=== PATIENT | female | born 1970 | race Caucasian/White ===

== ENCOUNTER 2021-10-11 16:13 | Emergency (ER) | payer SELFPAY ==
[2021-10-11 16:43] VITALS: BP 154/103; PULSE 89; RESP 16; TEMP 37.2; O2SAT 96; BMI 47.0
[2021-10-11 16:44] LABS: UTC Strep Screen (Rapid) Negative (Negative)
--- NOTE | 2021-10-11 17:09 | HMH.EDUTC ---
[facility] Disposition Clinical Impression: COVID-19 Disposition: Home, Self-Care Condition on Discharge: Good Instructions: DI for COVID-19 (Suspected or Confirmed ), Preventing the Spread of Coronavirus Discharge Instructions Additional Instructions: Drink plenty of fluids. Take tylenol or ibuprofen for pain or fever. Take the medications as directed. Follow up with your regular doctor. GO TO THE ER FOR ANY WORSENING SYMPTOMS The cough medication (promethazine dm) will make you drowsy, so don't drive or operate heavy machinery after taking it. Prescriptions: Albuterol Sulfate [Albuterol Sulfate Hfa] 2 puffs IH Q6HP PRN 30 Days #1 each PRN Reason: Shortness Of Breath Transmission Status: Received by [facility] # Fluconazole [Diflucan 150mg tab] 150 mg PO ONCE #1 tab Transmission Status: Received by [facility] # methylPREDNISolone [Medrol] 4 mg PO DIRECTED 6 Days #21 packet Transmission Status: Received by [facility] # Nirmatrelvir/Ritonavir [Paxlovid 2X150 mg-100 mg (Eua)] 1 packet PO DIRECTED 5 Days #1 packet Transmission Status: Received by [facility] # Azithromycin [Z-Thien 250mg Tab*] 250 mg PO UD DOSE PK #6 tab Transmission Status: Received by [facility] # Referrals: Provider,Referral, [Primary Care Provider] - Forms: Work/School Release Time of Disposition: 17:13 Medical Decision Making - Medical Records Medical records reviewed: No: I reviewed the patient's medical records. - Nicola Inquiry Pt receiving controlled substance: No Vital Signs: 10/11/21 16:43 10/11/21 17:21 Temperature 98.9 F 98.9 F Temperature Source Oral Pulse Rate 89 Pulse Rate [Left] 89 Respiratory Rate 16 16 Blood Pressure 154/103 H Blood Pressure [Right Arm] 154/103 H Blood Pressure Mean [Right Arm] 120 02 Sat by Pulse Oximetry 96 - Lab Data Lab results reviewed: Yes: I reviewed the patient's lab results. Lab Results 10/11/21 16:43: Strep Scn Rapid Clinic Negative Orders (Tests/Meds): ORDERS Category Date Time Status Strep Screen Confirmation Stat Micro 10/11/21 16:43 Received [facility] HPI - General Stated complaint: covid test, exposed,sore throat, alejandra Time Seen by Provider: 10/11/21 17:00 Mode of Arrival: Ambulatory Source of Information: Patient Limitations: No Limitations Description of Symptoms (Recalled from Triage Doc. by RN): patient comes in with complaints of covid symptoms. patient took an at home covid test this am and it was positive. symptoms began monday and include sore throat, congesetion, cough, headache, body aches. HEENT Symptoms (Recalled from RN notes): Yes Resp Symptoms (Recalled from RN notes): Yes Skin Symptoms (Recalled from RN notes): No MS Symptoms (Recalled from RN notes): No Functional Status (Recalled from RN notes): n/a - History of Present Illness Provider Complaint: She states that she has felt bad for the past 2 days. She took a home covid-19 test last night and it was positive. 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 - Related Data Previous Rx's Medication Instructions Recorded Albuterol Sulfate [Albuterol 2 puffs IH Q6HP PRN 30 Days #1 each 10/11/21 Sulfate Hfa] Azithromycin [Z-Thien 250mg Tab*] 250 mg PO UD DOSE PK #6 tab 10/11/21 Fluconazole [Diflucan 150mg tab] 150 mg PO ONCE #1 tab 10/11/21 Nirmatrelvir/Ritonavir [Paxlovid 1 packet PO DIRECTED 5 Days #1 10/11/21 2X150 mg-100 mg (Eua)] packet methylPREDNISolone [Medrol] 4 mg PO DIRECTED 6 Days #21 10/11/21 packet Allergies Allergy/AdvReac Type Severity Reaction Status Date / Time No Known Allergies Allergy Verified 10/11/21 16:46 - Worker's Comp Is this a Worker's Comp case?: No [facility] History - Hepatitis A Screen Attestation statement:: This patient has been screened for Hepatitis A risk factors. I have reviewed the patient's
[2021-10-11 17:21] VITALS: BP 154/103; PULSE 89; RESP 16; TEMP 37.2
== END 2021-10-11 17:22 | disposition home or self-care (01) ==
PROVIDERS: Emergency Provider Nurse Practitioner Family
DX: U07.1 COVID-19 (principal); J02.9 Acute pharyngitis, unspecified; M79.10 Myalgia, unspecified site; R51.9 Headache, unspecified; Z79.51 Long term (current) use of inhaled steroids; Z79.52 Long term (current) use of systemic steroids
CPT/HCPCS: 87880; 99213; C9803; G0463; U0003; U0005

== ENCOUNTER 2022-01-21 03:56 | Emergency (ER) | payer MEDICAID, SELFPAY ==
[2022-01-21 03:58] VITALS: BP 220/130; PULSE 79; RESP 18; TEMP 36.6; O2SAT 99; BMI 47.0
--- NOTE | 2022-01-21 04:04 | ECG_ITS ---
APPROVED REPORT Exam: Resting ECG HR:69 bpm ECG Measurements Heart Rate 69 AXES SC 166 P 73 QRSd 104 QRS 0 QT 418 T 105 QTc 436 Conclusion SINUS RHYTHM MODERATE T-WAVE ABNORMALITY, CONSIDER LATERAL ISCHEMIA [-0.1+ mV T-WAVE IN I/aVL/V5/V6] ABNORMAL ECG UNCONFIRMED REPORT Electronically signed by : Tomer Adames MD 01/22/2022 21:17:36
--- NOTE | 2022-01-21 04:09 | XR_ITS ---
PROCEDURE INFORMATION: Exam: XR Chest Exam date and time: 01/21/2022 4:09 AM Age: 51 years old Clinical indication: Cardiovascular condition or disease; Other: HTN TECHNIQUE: Imaging protocol: Radiologic exam of the chest. Views: 2 views. COMPARISON: No relevant prior studies available. FINDINGS: Lungs: No pulmonary infiltrate, pneumothorax or pleural effusion. Pleural spaces: See Lungs finding. Heart/Mediastinum: No cardiomegaly. Bones/joints: The visualized bones appear intact. Intraperitoneal space: No free air under the diaphragm. IMPRESSION: No acute cardiopulmonary process.
--- NOTE | 2022-01-21 04:19 | PC.NURSE ---
PT gone to RAD
--- NOTE | 2022-01-21 04:21 | PC.NURSE ---
Pt back from RAD
--- NOTE | 2022-01-21 04:26 | HMH.EDDIZZ ---
Discharge Plan Disposition Chief Complaint: Dizziness Referrals Follow up/Referrals: Provider,MD Shannan [Primary Care Provider] - See instructions Madi Zamora MD [Staff Physician] - See instructions Clinical Impressions Clinical Impression: Hypertensive emergency Instructions Patient Instructions: DI for High Blood Pressure, Dizziness, Nonvertigo Discharge ED Provider: Edgardo Lopez HPI General Chief Complaint: Dizziness Stated Complaint: High blood pressure-217/119,dizziness Time Seen by Provider: 01/21/22 04:26 Mode of Arrival: Ambulatory Source of Information: Patient and Medical Record Limitations: No Limitations Description of Symptoms (Recalled from ER Triage Doc. by RN): pt c/o HTN, dizzy, light headed, and episodes of blurred vision since monday. pt had been on HTN meds but moved and ran out and haven't found new pcp History of Present Illness HPI Narrative: has hx of htn and out of meds and not feeling well w/o chest pain or focal neuro sx complaint: dizziness Onset (ago): hour(s) Timing: waxing/waning History of similar episodes: Yes History of trauma: No Severity: moderate Associated symptoms: denies other symptoms Related Data Allergies Allergy/AdvReac Type Severity Reaction Status Date / Time No Known Allergies Allergy Verified 10/11/21 16:46 PFSH PFSH Social History Smoking Status: Never smoker alcohol intake: never current occupational status: employed Travel in the last 8 weeks: None ROS Obtained: Yes All systems reviewed & no additional complaints except as documented Physical Exam General General appearance: alert and obese Head Head exam: normocephalic Eye Eye exam: Present PERRL and EOMI; Absent nystagmus ENT ENT exam: Present normal oropharynx and mucous membranes moist Neck Neck exam: Present trachea midline Respiratory Respiratory exam: Present normal lung sounds bilaterally Cardiovascular Cardiovascular exam: Present regular rate and systolic murmur Abdominal Exam Abdominal exam: Present soft Extremities Exam Extremities exam: Present full ROM; Absent edema Neurological Exam Neurological exam: Present alert, oriented X3 and CN II-XII intact Psychiatric Psychiatric exam: Present normal affect Skin Skin exam: Absent rash Medical Decision Making Medical Records Medical records reviewed: Yes I reviewed the patient's medical records. Nicola Inquiry Pt receiving controlled substance: No Vital Signs: 01/21/22 03:58 01/21/22 05:26 Temperature 97.8 F Temperature Source Oral Pulse Rate 62 Pulse Rate [Right] 79 Respiratory Rate 18 Blood Pressure 188/93 H Blood Pressure [Right Arm] 220/130 H Blood Pressure Mean [Right Arm] 160 Blood Pressure Source [Right Arm] Manual Cuff/ Auscultation 02 Sat by Pulse Oximetry 99 95 Oxygen Delivery Method Room Air Lab Data Lab results reviewed: Yes I reviewed the patient's lab results. Lab Results 01/21/22 04:15: WBC 7.8, RBC 5.33, Hgb 14.8, Hct 45.6, MCV 85.6, MCH 27.8, MCHC 32.4, RDW 14.9, Plt Count 263, MPV 8.7, Neut % (Auto) 53.0, Lymph % (Auto) 39.8, [place] % (Auto) 4.5, Eos % (Auto) 1.6, Baso % (Auto) 1.1, Neut # (Auto) 4.1, Lymph # (Auto) 3.1, [place] # (Auto) 0.4, Eos # (Auto) 0.1, Baso # (Auto) 0.1 01/21/22 04:15: Sodium 140, Potassium 3.5, Chloride 102, Carbon Dioxide 26, Anion Gap 15.5 H, BUN 14, Creatinine 0.90, Estimated Creat Clear 71, Estimated GFR 66, Est GFR ( Amer) 80, Glucose 134 H, Calcium 9.2, Total Bilirubin 0.3, AST 26, ALT 23, Alkaline Phosphatase 178 H, Troponin I < 0.01, Total Protein 7.7, Albumin 4.2, Globulin 3.5 H, Albumin/Globulin Ratio 1.2 Result diagrams: 01/21/22 04:15 01/21/22 04:15 Orders (Tests/Meds): ED MEDICATIONS Discontinued Medications Generic Name Dose Route Start Last Admin Trade Name Freq PRN Reason Stop Dose Admin Clonidine HCl 0.1 mg 01/21/22 04:47 01/21/22 04:49 Clonidine 0.1mg Tablet
[2022-01-21 04:36] LABS: Basophils # 0.1 K/mm3 (0-0.2); Basophils % 1.1 % (0.1-2.0); Eosinophils # 0.1 K/mm3 (0.0-0.4); Eosinophils % 1.6 % (0.1-12.0); Hematocrit 45.6 % (37.0-47.0); Hemoglobin 14.8 g/dL (12.2-16.2); Lymphocytes # 3.1 K/mm3 (0.7-4.5); Lymphocytes % 39.8 % (10-50); Mean Corpuscular HGB Conc 32.4 g/dL (31.8-35.4); Mean Corpuscular Hemoglobin 27.8 pg (27.0-31.2); Mean Corpuscular Volume 85.6 fl (81-99); Mean Platelet Volume 8.7 fl (7.4-10.4); Monocytes # 0.4 K/mm3 (0.1-1.0); Monocytes % 4.5 % (1.7-9.3); Neutrophils # 4.1 K/mm3 (1.8-7.8); Platelet Count 263 K/mm3 (142-424); Red Blood Count 5.33 M/mm3 (4.20-5.40); Red Cell Distribution Width 14.9 % (11.5-17.5); White Blood Count 7.8 K/mm3 (4.8-10.8)
--- NOTE | 2022-01-21 04:47 | CT_ITS ---
PROCEDURE INFORMATION: Exam: CT Head Without Contrast Exam date and time: 01/21/2022 4:54 AM Age: 51 years old Clinical indication: Dizziness; Additional info: Dizziness, high blood pressure TECHNIQUE: Imaging protocol: Computed tomography of the head without contrast. Radiation optimization: All CT scans at this facility use at least one of these dose optimization techniques: automated exposure control; mA and/or kV adjustment per patient size (includes targeted exams where dose is matched to clinical indication); or iterative reconstruction. COMPARISON: No relevant prior studies available. FINDINGS: Brain: No evidence of acute intracranial hemorrhage. No acute parenchymal edema. No mass or shift. Cerebral ventricles: No ventriculomegaly. Paranasal sinuses: Visualized sinuses are unremarkable. No fluid levels. Mastoid air cells: Unremarkable as visualized. No mastoid effusion. Bones/joints: No acute fracture. Soft tissues: Unremarkable. IMPRESSION: No acute intracranial process.
[2022-01-21 04:50] LABS: Chloride 102 mmol/L (98-107); Potassium 3.5 mmoL/L (3.5-5.1); Sodium 140 mmol/L (136-145)
[2022-01-21 04:52] LABS: Alanine Aminotransferase 23 U/L (12-78); Alkaline Phosphatase 178 U/L (38-126); Aspartate Amino Transferase 26 U/L (14-36); Bilirubin,Total 0.3 mg/dl (0.2-1.3); Blood Urea Nitrogen 14 mg/dl (7-17); Creatinine Clearance Estimated 71 mL/min (50-200); Estimated Glomerular Filt Rate 66 ml/min (>60); GFR (African American) 80 ML/MIN (>60)
[2022-01-21 04:53] LABS: Albumin Level 4.2 g/dl (3.5-5.0); Albumin/Globulin Ratio 1.2 (1.1-1.8); Anion Gap 15.5 mEq/L (5-15); Calcium 9.2 mg/dl (8.4-10.2); Carbon Dioxide 26 mmol/L (22.0-30.0); Globulin 3.5 g/dL (1.3-3.2); Glucose 134 mg/dl (74-100); Total Protein,Serum 7.7 g/dl (6.3-8.2)
--- NOTE | 2022-01-21 04:53 | PC.NURSE ---
Pt gone to RAD for CT
[2022-01-21 05:26] VITALS: BP 188/93; PULSE 62; O2SAT 95
[2022-01-21 05:27] LABS: Troponin I < 0.01 ng/ml (0.00-0.034)
[2022-01-21 06:24] VITALS: BP 179/97; PULSE 61; RESP 16; TEMP 36.8; O2SAT 94
== END 2022-01-21 06:51 | disposition home or self-care (01) ==
PROVIDERS: Emergency Provider Emergency Medicine
DX: I16.1 Hypertensive emergency (principal)
CPT/HCPCS: 70450; 71046; 80053; 84484; 85025; 93005; 99285

== ENCOUNTER → 2022-02-09 14:55 | Outpatient (CLI) | payer MEDICAID, SELFPAY ==
[2022-02-09 15:47] LABS: Basophils # 0.1 K/mm3 (0-0.2); Basophils % 1.5 % (0.1-2.0); Eosinophils # 0.2 K/mm3 (0.0-0.4); Eosinophils % 1.8 % (0.1-12.0); Hematocrit 45.2 % (37.0-47.0); Hemoglobin 14.7 g/dL (12.2-16.2); Lymphocytes # 3.2 K/mm3 (0.7-4.5); Lymphocytes % 38.9 % (10-50); Mean Corpuscular HGB Conc 32.6 g/dL (31.8-35.4); Mean Corpuscular Hemoglobin 27.4 pg (27.0-31.2); Mean Platelet Volume 8.9 fl (7.4-10.4); Monocytes # 0.4 K/mm3 (0.1-1.0); Monocytes % 5.2 % (1.7-9.3); Neutrophils # 4.3 K/mm3 (1.8-7.8); Neutrophils % 52.6 % (37.0-80.0); Platelet Count 291 K/mm3 (142-424); Red Blood Count 5.38 M/mm3 (4.20-5.40); Red Cell Distribution Width 14.5 % (11.5-17.5); White Blood Count 8.3 K/mm3 (4.8-10.8)
[2022-02-09 16:42] LABS: Anion Gap 16.3 mEq/L (5-15); Blood Urea Nitrogen 25 mg/dl (7-17); Calcium 10.4 mg/dl (8.4-10.2); Carbon Dioxide 27 mmol/L (22.0-30.0); Chloride 100 mmol/L (98-107); Estimated Glomerular Filt Rate 47 ml/min (>60); GFR (African American) 57 ML/MIN (>60); Glucose 143 mg/dl (74-100); Potassium 4.3 mmoL/L (3.5-5.1); Sodium 139 mmol/L (136-145)
[2022-02-09 17:00] LABS: Free Thyroxine Index 2.4 ug/dL (5.93-13.13); Triiodothryronine (T3) Uptake 34 % (23.5-40.5)
[2022-02-09 17:13] LABS: Thyroid Stimulating Hormone 0.05 uIU/mL (0.465-4.68)
== END ==
PROVIDERS: Visit Provider Physician Assistant
DX: I16.1 Hypertensive emergency (principal); R94.31 Abnormal electrocardiogram [ECG] [EKG]; Z79.899 Other long term (current) drug therapy
CPT/HCPCS: 36415; 80048; 84436; 84443; 84479; 85025

== ENCOUNTER → 2022-03-07 13:54 | Outpatient (CLI) | payer MEDICAID, SELFPAY ==
--- NOTE | 2022-03-07 13:57 | US_ITS ---
FINAL REPORT CLINICAL HISTORY: hyperthyroidism FINDINGS: THYROID ULTRASOUND Scattered thyroid nodules. Dominant mass in the posterior left thyroid lobe has a predominantly isoechoic appearance measuring up to 2.2 cm. Other lesions are subcentimeter measuring up to 9 mm having a benign appearance. Mild thyromegaly with heterogeneous parenchyma compatible with goiter. IMPRESSION: Dominant mass in the left thyroid lobe with underlying multinodular goiter compatible with TI-RADS 3. Recommend FNA of the dominant mass. Reviewed, Interpreted and Dictated by Ayush Henderson MD Transcribed by Royer Everett Authenticated and [facility]
== END ==
PROVIDERS: PCP Nurse Practitioner Family; Visit Provider Physician Assistant
DX: E05.90 Thyrotoxicosis, unspecified without thyrotoxic crisis or storm (principal); I10 Essential (primary) hypertension; R07.9 Chest pain, unspecified; R94.31 Abnormal electrocardiogram [ECG] [EKG]
CPT/HCPCS: 76536

== ENCOUNTER → 2022-03-29 15:00 | Outpatient (CLI) | payer MEDICAID, SELFPAY ==
[2022-03-29 17:00] LABS: Anion Gap 12.9 mEq/L (5-15); Blood Urea Nitrogen 12 mg/dl (7-17); Calcium 9.2 mg/dl (8.4-10.2); Carbon Dioxide 27 mmol/L (22.0-30.0); Chloride 103 mmol/L (98-107); Estimated Glomerular Filt Rate 52 ml/min (>60); GFR (African American) 63 ML/MIN (>60); Glucose 103 mg/dl (74-100); Potassium 3.9 mmoL/L (3.5-5.1); Sodium 139 mmol/L (136-145)
[2022-03-29 17:14] LABS: Free T4 (Free Thyroxine) 1.06 ng/dl (0.78-2.19)
[2022-03-29 17:15] LABS: Intact Parathyroid Hormone 102.2 pg/mL (7.5-53.5)
[2022-03-31 08:45] LABS: Triiodothyronine (T3) Free 2.6 pg/mL (2.0-4.4)
[2022-03-31 18:09] LABS: Calcium, Ionized 5.3 mg/dL (4.5-5.6)
[2022-04-01 07:32] LABS: Thyroid Stimulating Immunoglob <0.10 IU/L (0.00-0.55)
== END ==
PROVIDERS: PCP Emergency Medicine; Visit Provider Student in an Organized Health Care Education/Training Program
DX: E05.90 Thyrotoxicosis, unspecified without thyrotoxic crisis or storm (principal)
CPT/HCPCS: 36415; 80048; 82330; 83970; 84439; 84443; 84445; 84481

== ENCOUNTER → 2022-04-08 07:57 | Outpatient (CLI) | payer MEDICAID, SELFPAY ==
--- NOTE | 2022-04-08 07:57 | US_ITS ---
FINAL REPORT CLINICAL HISTORY: .lt thyroid fna -- eddie silvestre FINDINGS: Ultrasound guided thyroid biopsy. HISTORY:. Left thyroid nodule. Attending radiologist: Dr. Nicholas Physician Grape Cutter: Eddie Lr PA-C PROCEDURE: After informed consent was obtained and a time-out was performed, the patient was prepped and draped in usual sterile fashion over the left neck. Utilizing local anesthesia and sterile technique with a 25-gauge needle, access to lesion was obtained. 6 passes were made. The pathologist indicated the specimens were adequate for diagnostic purposes. The patient received no conscious sedation. The patient tolerated procedure well and left the department in good condition. IMPRESSION: Status post ultrasound guided biopsy of thyroid without immediate complication. Films reviewed , interpreted and dictated by Dr. Nicholas. Transcribed by Eddie Lr PA-C. Reviewed, Interpreted and Dictated by Marino Nicholas III, MD Transcribed by RADHA Escalera Authenticated and [facility]
== END ==
PROVIDERS: PCP Emergency Medicine; Visit Provider Student in an Organized Health Care Education/Training Program
DX: E05.90 Thyrotoxicosis, unspecified without thyrotoxic crisis or storm (principal)
CPT/HCPCS: 10005; 76536

== ENCOUNTER → 2022-08-16 13:29 | Outpatient (CLI) | payer MEDICAID, SELFPAY ==
--- NOTE | 2022-08-16 13:29 | MM_ITS ---
PROCEDURE INFORMATION: Exam: MG Bilateral Screening 3D Mammography Exam date and time: 08/16/2022 1:32 PM Age: 51 years old Clinical indication: Screening. Maternal and paternal aunts had breast cancer. TECHNIQUE: Imaging protocol: Bilateral Screening tomosynthesis and 2D mammography including computer-aided detection (CAD) when performed. COMPARISON: No relevant prior studies available. If prior mammograms are provided, I am happy to add an addendum. FINDINGS: MAMMOGRAPHY: Breast composition: The breasts are almost entirely fatty. Mass: None. Architectural distortion: None. Calcifications: No suspicious calcifications. Asymmetric density: None. Skin thickening: None. Axillary adenopathy: None. IMPRESSION: No mammographic evidence of malignancy. Annual screening is recommended unless otherwise clinically indicated. ASSESSMENT: BI-RADS Category 1: Negative
== END ==
PROVIDERS: PCP Nurse Practitioner Family; Visit Provider Nurse Practitioner Family
DX: Z12.31 Encounter for screening mammogram for malignant neoplasm of breast (principal)
CPT/HCPCS: 77063; 77067

== ENCOUNTER → 2022-08-17 15:04 | Outpatient (CLI) | payer MEDICAID, SELFPAY ==
[2022-08-17 16:04] LABS: Basophils # 0.1 K/mm3 (0-0.2); Basophils % 0.6 % (0.1-2.0); Eosinophils # 0.2 K/mm3 (0.0-0.4); Eosinophils % 2.1 % (0.1-12.0); Hematocrit 43.1 % (37.0-47.0); Hemoglobin 13.6 g/dL (12.2-16.2); Lymphocytes # 2.9 K/mm3 (0.7-4.5); Lymphocytes % 36.1 % (10-50); Mean Corpuscular HGB Conc 31.5 g/dL (31.8-35.4); Mean Corpuscular Hemoglobin 27.1 pg (27.0-31.2); Mean Corpuscular Volume 86.1 fl (81-99); Mean Platelet Volume 8.2 fl (7.4-10.4); Monocytes # 0.4 K/mm3 (0.1-1.0); Monocytes % 5.1 % (1.7-9.3); Neutrophils # 4.5 K/mm3 (1.8-7.8); Neutrophils % 56.1 % (37.0-80.0); Platelet Count 229 K/mm3 (142-424); Red Cell Distribution Width 14.5 % (11.5-17.5)
[2022-08-17 16:19] LABS: Alanine Aminotransferase 16 U/L (12-78); Alkaline Phosphatase 164 U/L (38-126); Anion Gap 16.2 mEq/L (5-15); Aspartate Amino Transferase 20 U/L (14-36); Bilirubin,Indirect 0.5 mg/dL (0.0-0.9); Bilirubin,Total 0.5 mg/dl (0.2-1.3); Bilirubin,Unconjugated 0.6 mg/dL (0.0-1.1); Blood Urea Nitrogen 14 mg/dl (7-17); Calcium 8.7 mg/dl (8.4-10.2); Carbon Dioxide 24 mmol/L (22.0-30.0); Chloride 106 mmol/L (98-107); Chol/HDL Ratio 2.4 (1-3.5); Cholesterol 143 mg/dl (140-200); Estimated Glomerular Filt Rate 75 ml/min (>60); GFR (African American) 91 ML/MIN (>60); Glucose 93 mg/dl (74-100); HDL Cholesterol 59 mg/dl (40-60); Magnesium 1.8 mg/dl (1.6-2.3); Potassium 4.2 mmoL/L (3.5-5.1); Sodium 142 mmol/L (136-145); Total Protein,Serum 7.3 g/dl (6.3-8.2); Triglycerides 93 mg/dl (30-150); VLDL Cholesterol 19 mg/dL (0-40)
[2022-08-17 16:30] LABS: Direct LDL Cholesterol 64.78 mg/dL (100-129)
[2022-08-17 16:35] LABS: Free T4 (Free Thyroxine) 1.19 ng/dl (0.78-2.19)
[2022-08-17 16:49] LABS: Thyroid Stimulating Hormone 0.21 uIU/mL (0.465-4.68)
== END ==
PROVIDERS: PCP Nurse Practitioner Family; Visit Provider Nurse Practitioner
DX: I10 Essential (primary) hypertension (principal); R94.31 Abnormal electrocardiogram [ECG] [EKG]
CPT/HCPCS: 36415; 80048; 80061; 80076; 83735; 84439; 84443; 85025

== ENCOUNTER → 2022-08-25 23:27 | Outpatient (CLI) | payer MEDICAID, SELFPAY ==
[2022-08-25 18:50] LABS: Anion Gap 16.4 mEq/L (5-15); Blood Urea Nitrogen 14 mg/dl (7-17); Carbon Dioxide 24 mmol/L (22.0-30.0); Chloride 104 mmol/L (98-107); Estimated Glomerular Filt Rate 75 ml/min (>60); GFR (African American) 91 ML/MIN (>60); Glucose 93 mg/dl (74-100); Potassium 4.4 mmoL/L (3.5-5.1); Sodium 140 mmol/L (136-145)
[2022-08-25 19:02] LABS: Intact Parathyroid Hormone 99.9 pg/mL (7.5-53.5)
[2022-08-25 19:05] LABS: Free T4 (Free Thyroxine) 1.18 ng/dl (0.78-2.19)
[2022-08-25 19:21] LABS: Thyroid Stimulating Hormone 0.32 uIU/mL (0.465-4.68)
[2022-08-27 19:35] LABS: Triiodothyronine (T3) Free 2.6 pg/mL (2.0-4.4)
[2022-08-29 15:29] LABS: Calcium, Ionized 4.9 mg/dL (4.5-5.6)
[2022-08-30 15:27] LABS: Thyroid Stimulating Immunoglob <0.10 IU/L (0.00-0.55)
== END ==
PROVIDERS: PCP Nurse Practitioner Family; Visit Provider Nurse Practitioner Family
DX: E05.90 Thyrotoxicosis, unspecified without thyrotoxic crisis or storm (principal)
CPT/HCPCS: 80048; 82330; 83970; 84439; 84443; 84445; 84481

== ENCOUNTER → 2022-09-15 09:36 | Outpatient (CLI) | payer MEDICAID, SELFPAY ==
--- NOTE | 2022-09-15 09:36 | NM_ITS ---
FINAL REPORT CLINICAL HISTORY: Elevated PTH hormone-sestamibi scan 9:37 am 21.5 mci tc sestamibi injected into lt hand FINDINGS: 21.5 mCi Technetium Sestamibi was administered. Planar imaging was performed early and two-hour delayed of the neck and upper thorax. Early imaging shows physiologic uptake within the upper neck involving the salivary glands and lower neck involving the thyroid gland. On delayed imaging there is no abnormal retained activity in the lower neck or mediastinum to localize parathyroid adenoma. IMPRESSION: No scintigraphic evidence of parathyroid adenoma. Reviewed, Interpreted and Dictated by Marino Nicholas III, MD Transcribed by Martina Guillen Authenticated and [facility]
== END ==
PROVIDERS: PCP Nurse Practitioner Family; Visit Provider Nurse Practitioner
DX: E21.3 Hyperparathyroidism, unspecified (principal)
CPT/HCPCS: 78070; A9500

== ENCOUNTER → 2022-09-21 11:33 | Outpatient (CLI) | payer MEDICAID, SELFPAY ==
[2022-09-28 19:14] LABS: 1,25 Dihydroxy Vitamin D 43 pg/mL (.); 1,25-Dihydroxy, Vitamin D-2 <10 pg/mL (.); 1,25-Dihydroxy, Vitamin D-3 39 pg/mL (.)
== END ==
PROVIDERS: PCP Nurse Practitioner Family; Visit Provider Nurse Practitioner
DX: E21.3 Hyperparathyroidism, unspecified (principal)
CPT/HCPCS: 36415; 82652

== ENCOUNTER 2022-10-01 20:28 | Emergency (ER) | payer MEDICAID, OTHER, SELFPAY ==
[2022-10-01 20:29] VITALS: BP 165/84; PULSE 78; RESP 18; TEMP 36.8; O2SAT 96; BMI 42.5
--- NOTE | 2022-10-01 20:40 | CT_ITS ---
PROCEDURE INFORMATION: Exam: CT Head Without Contrast Exam date and time: 10/01/2022 9:40 PM Age: 51 years old Clinical indication: Pain; Headache; Patient HX: Hit forehead on garage door; Additional info: Head injury, vomiting TECHNIQUE: Imaging protocol: Computed tomography of the head without contrast. Radiation optimization: All CT scans at this facility use at least one of these dose optimization techniques: automated exposure control; mA and/or kV adjustment per patient size (includes targeted exams where dose is matched to clinical indication); or iterative reconstruction. REPORTING DATA: Count of CT and Cardiac NM exams in prior 12 months: This patient has received [address] and 0 known cardiac nuclear medicine studies in the 12 months prior to the current study. COMPARISON: CT HEAD/BRAIN WO CON 01/21/2022 4:54 AM FINDINGS: Brain: Normal. No hemorrhage. Unremarkable white matter. No mass effect. Cerebral ventricles: No ventriculomegaly. Paranasal sinuses: Visualized sinuses are unremarkable. No fluid levels. Mastoid air cells: Visualized mastoid air cells are well aerated. Bones/joints: Unremarkable. No acute fracture. Soft tissues: Unremarkable. IMPRESSION: No acute intracranial abnormality.
--- NOTE | 2022-10-01 20:40 | CT_ITS ---
PROCEDURE INFORMATION: Exam: CT Cervical Spine Without Contrast Exam date and time: 10/01/2022 9:43 PM Age: 51 years old Clinical indication: Injury or trauma; Other: Hit head; Patient HX: Hit forehead on garage door; Additional info: Head injury, vomiting TECHNIQUE: Imaging protocol: Computed tomography of the cervical spine without contrast. Radiation optimization: All CT scans at this facility use at least one of these dose optimization techniques: automated exposure control; mA and/or kV adjustment per patient size (includes targeted exams where dose is matched to clinical indication); or iterative reconstruction. REPORTING DATA: Count of CT and Cardiac NM exams in prior 12 months: This patient has received [address] and 0 known cardiac nuclear medicine studies in the 12 months prior to the current study. COMPARISON: NM PARATHYROID 09/15/2022 10:02 AM FINDINGS: Bones/joints: No acute fracture. Degenerative disc and joint space changes at multiple most pronounced at C4/5 through C6/7. Vertebral body heights grossly preserved. Cortices intact. Normal alignment. No significant disc bulge or herniation. No severe spinal canal stenosis. No significant neural foraminal narrowing. Lungs: Lung apices are normal. Soft tissues: Unremarkable. IMPRESSION: No acute findings. Degenerative changes
--- NOTE | 2022-10-01 21:29 | HMH.EDGENADL ---
Discharge Plan Disposition Patient Disposition: Home, Self-Care Condition: Good Prescriptions Prescriptions: New ondansetron 4 mg tablet,disintegrating 4 mg PO Q8H PRN (Reason: nausea and vomiting) 4 Days Qty: 12 0RF No Action diclofenac sodium 75 mg tablet,delayed release (DR/EC) 75 mg PO BID PRN metformin 500 mg tablet extended release 24 hr 1,000 mg PO BID potassium chloride 20 mEq tablet,ER particles/crystals See Rx Instructions .ROUTE .COMPLEX Qty: 90 1RF Dose Instruction: TAKE 1 TABLET BY MOUTH DAILY Rx Instructions: TAKE 1 TABLET BY MOUTH DAILY amlodipine 10 mg tablet 10 mg PO DAILY Qty: 90 1RF escitalopram oxalate 20 mg tablet 20 mg PO DAILY Qty: 90 1RF chlorthalidone 25 mg tablet 25 mg PO DAILY Qty: 90 1RF losartan 100 mg tablet 100 mg PO DAILY Qty: 90 1RF naproxen 500 mg tablet 500 mg PO BID Qty: 30 0RF quetiapine [Seroquel] 25 mg tablet 25 mg PO DAILY Qty: 90 2RF carvedilol 12.5 mg tablet 12.5 mg PO BID Qty: 180 1RF atorvastatin 40 mg tablet 40 mg PO DAILY Qty: 90 1RF Ozempic 1 mg/dose (4 mg/3 mL) pen injector 1 mg SQ WEEKLY Qty: 3 4RF spironolactone 25 mg tablet 25 mg PO .m,w,f Qty: 14 0RF Referrals Follow up/Referrals: Sourav Guzman APRN [Primary Care Provider] - See instructions Activity Restrictions/Add. Instructions Additional Instructions/Restrictions: You were evaluated in the emergency department today and diagnosed with a concussion. Please follow-up with your primary care provider over the next 3 days. 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 Return to the emergency department for any new or worsening symptoms. Clinical Impressions Clinical Impression: Concussion Qualifiers: Encounter type: initial encounter Loss of consciousness presence/duration: without LOC Qualified Code(s): S06.0X0A - Concussion without loss of consciousness, initial encounter Instructions Patient Instructions: DI for Concussion Discharge ED Provider: Lachelle Vera General Adult HPI General Chief complaint: Head Injury Stated complaint: AO 1930 10/01 hit head Time Seen by Provider: 10/01/22 20:38 Mode of Arrival: Ambulatory Source of Information: Patient Limitations: No Limitations Description of Symptoms (Recalled from ER Triage Doc. by RN): Pt arrives with complaints of headache and nausea after hitting her forehead on garage door as it was lowering. Denies any visual chnages or LOC. Pt does have nausea no vomiting. History of Present Illness HPI narrative: This patient is a 51-year-old female with a history of obesity, hypertension, and type 2 diabetes presenting to the emergency department for evaluation for evaluation with concern for head injury. Patient reports that she was trying to go underneath her garage door when she hit her head on the garage door. She did not lose consciousness. This happened approximate 1 hour prior to arrival. Since then, she has had headache and nausea. No emesis noted. No vision changes, numbness, tingling, or other concerns. She was well prior to this. She does not take any anticoagulation. Related Data Home Medications Medication Instructions Recorded Confirmed diclofenac sodium 75 mg 75 mg PO BID PRN 01/26/22 09/21/22 tablet,delayed release metformin 500 mg tablet,extended 1,000 mg PO BID 01/26/22 09/21/22 release 24 hr Previous Rx's Medication Instructions Recorded atorvastatin 40 mg tablet 40 mg PO DAILY #90 tabs 05/03/22 carvedilol 12.5 mg tablet 12.5 mg PO BID #180 tabs 05/03/22 semaglutide 1 mg/dose (4 mg/3 mL) 1 mg (0.75 mL) SQ WEEKLY #3 mL 05/11/22 subcutaneous pen injector (Ozempic) spironolactone 25 mg tablet 25 mg PO .m,w,f #14 tabs 05/31/22 amlodipine 10 mg tablet 10 mg PO DAILY #90 tabs 08/05/22 chlorthalidone 25 mg tablet 25 mg PO DAILY #90 tabs 08/05/22 escitalopram oxalate 20 mg tablet 20 mg PO DAILY #
[2022-10-01 22:42] VITALS: BP 152/81; PULSE 78; RESP 16; TEMP 36.8
== END 2022-10-01 22:46 | disposition home or self-care (01) ==
PROVIDERS: Emergency Provider Emergency Medicine; PCP Nurse Practitioner Family
DX: S06.0X0A Concussion without loss of consciousness, initial encounter (principal); R51.9 Headache, unspecified; R11.0 Nausea; W22.8XXA Striking against or struck by other objects, initial encounter; E11.9 Type 2 diabetes mellitus without complications; I10 Essential (primary) hypertension; E21.3 Hyperparathyroidism, unspecified
CPT/HCPCS: 70450; 72125; 96361; 96374; 96375; 99285

== ENCOUNTER → 2022-10-21 15:09 | Outpatient (CLI) | payer OTHER, MEDICAID, SELFPAY ==
--- NOTE | 2022-10-21 15:12 | XR_ITS ---
FINAL REPORT CLINICAL HISTORY: lt hand pain, attention middle finger FINDINGS: Left hand Three views were obtained. There is no acute fracture or dislocation. There are moderate degenerative changes of the 1st carpometacarpal. A loose body is seen in this region measuring 8 mm. There is a 12 mm soft tissue mass in the midportion of the 3rd digit laterally. IMPRESSION: Soft tissue mass of the 3rd digit. MRI can help further characterize. Moderate degenerative changes of the 1st carpometacarpal with a loose body in this region. Reviewed, Interpreted and Dictated by Marino Nicholas III, MD Transcribed by Martina Guillen Authenticated and [facility]
== END ==
PROVIDERS: PCP Nurse Practitioner Family; Visit Provider Orthopaedic Surgery
DX: M65.331 Trigger finger, right middle finger (principal)
CPT/HCPCS: 73130

== ENCOUNTER 2022-10-28 09:25 | Emergency (ER) | payer OTHER, MEDICAID, SELFPAY ==
[2022-10-28 09:26] VITALS: BP 148/79; PULSE 72; RESP 18; TEMP 36.6; O2SAT 98; BMI 43.8
--- NOTE | 2022-10-28 09:47 | EXP.UTC ---
Discharge Plan Disposition Patient Disposition: Home, Self-Care Condition: Good Prescriptions Prescriptions: New cyclobenzaprine 10 mg Tablet 10 mg PO BID PRN (Reason: Muscle Spasm) Qty: 20 0RF methylprednisolone 4 mg Tablets,Dose Pack 4 mg PO DIRECTED Qty: 21 0RF No Action diclofenac sodium 75 mg tablet,delayed release (DR/EC) 75 mg PO BID PRN metformin 500 mg tablet extended release 24 hr 1,000 mg PO BID potassium chloride 20 mEq tablet,ER particles/crystals See Rx Instructions .ROUTE .COMPLEX Qty: 90 1RF Dose Instruction: TAKE 1 TABLET BY MOUTH DAILY Rx Instructions: TAKE 1 TABLET BY MOUTH DAILY amlodipine 10 mg tablet 10 mg PO DAILY Qty: 90 1RF escitalopram oxalate 20 mg tablet 20 mg PO DAILY Qty: 90 1RF chlorthalidone 25 mg tablet 25 mg PO DAILY Qty: 90 1RF losartan 100 mg tablet 100 mg PO DAILY Qty: 90 1RF quetiapine [Seroquel] 25 mg tablet 25 mg PO DAILY Qty: 90 2RF carvedilol 12.5 mg tablet 12.5 mg PO BID Qty: 180 1RF atorvastatin 40 mg tablet 40 mg PO DAILY Qty: 90 1RF Ozempic 1 mg/dose (4 mg/3 mL) pen injector 1 mg SQ WEEKLY Qty: 3 4RF spironolactone 25 mg tablet 25 mg PO .m,w,f Qty: 14 5RF Referrals Follow up/Referrals: Sourav Guzman APRN [Primary Care Provider] - See instructions Activity Restrictions/Add. Instructions Additional Instructions/Restrictions: Go home and rest. It would be best if you rested tomorrow too. No heavy lifting. No twisting. Take the oral medications as directed. The muscle relaxer (cyclobenzaprine--Flexeril) will make you drowsy, so don't drive or operate heavy machinery after taking it. Follow up with your regular doctor. GO TO THE ER FOR ANY WORSENING SYMPTOMS OR CONCERN, ESPECIALLY BOWEL OR BLADDER ISSUES, SADDLE AREA NUMBNESS, FEVER, ETC Clinical Impressions Clinical Impression: Low back pain Stand Alone Forms Stand Alone Forms: Work/School Release Instructions Patient Instructions: Low Back Pain, DI for Low Back Pain, Cyclobenzaprine Discharge ED Provider: Agapito Miles [facility] General Stated complaint: low back pain, no accident Time Seen by Provider: 10/28/22 09:47 History of Present Illness Provider Complaint: She states that she has had low back pain for the past 2 days. Related Data Home Medications Medication Instructions Recorded Confirmed diclofenac sodium 75 mg 75 mg PO BID PRN 01/26/22 10/20/22 tablet,delayed release metformin 500 mg tablet,extended 1,000 mg PO BID 01/26/22 10/20/22 release 24 hr Previous Rx's Medication Instructions Recorded atorvastatin 40 mg tablet 40 mg PO DAILY #90 tabs 05/03/22 carvedilol 12.5 mg tablet 12.5 mg PO BID #180 tabs 05/03/22 amlodipine 10 mg tablet 10 mg PO DAILY #90 tabs 08/05/22 chlorthalidone 25 mg tablet 25 mg PO DAILY #90 tabs 08/05/22 escitalopram oxalate 20 mg tablet 20 mg PO DAILY #90 tabs 08/05/22 losartan 100 mg tablet 100 mg PO DAILY #90 tabs 08/05/22 quetiapine 25 mg tablet (Seroquel) 25 mg PO DAILY #90 tabs 08/05/22 potassium chloride 20 mEq See Rx Instructions .Route 08/17/22 tablet,extended release(part/cryst) .COMPLEX #90 tabs semaglutide 1 mg/dose (4 mg/3 mL) 1 mg (0.75 mL) SQ WEEKLY #3 mL 10/07/22 subcutaneous pen injector (Ozempic) spironolactone 25 mg tablet 25 mg PO .m,w,f #14 tabs 10/20/22 cyclobenzaprine 10 mg tablet 10 mg PO BID PRN Muscle Spasm #20 10/28/22 tabs methylprednisolone 4 mg tablets in 4 mg PO DIRECTED #21 tabs 10/28/22 a dose pack Allergies Allergy/AdvReac Type Severity Reaction Status Date / Time No Known Allergies Allergy Verified 10/21/22 15:41 [facility] Disclaimer: The information contained in this section may have been updated after the patient was seen, as this information can be updated by other users. Medical History Abnormal electrocardiogram [ECG] [EKG]
[2022-10-28 09:51] LABS: Microscopic, Urine URINE MICROSCOPIC (MICROSCOPIC)
[2022-10-28 10:00] LABS: Appearance,Urine CLEAR (Clear); Bilirubin,Urine Negative (Negative); Blood, Urine Negative (Negative); Color,Urine YELLOW (Yellow); Glucose,Urine (UA) Negative (Negative); Ketones,Urine Negative (Negative); Leukocyte Esterase,Urine Negative (Negative); Nitrate,Urine Negative (Negative); PH,Urine 5.5 (5.0-8.5); Protein,Urine Negative (Negative); Specific Gravity, Urine 1.025 (1.005-1.030); Urobilinogen,Urine 0.2 EU/dl (0.2)
[2022-10-28 10:20] VITALS: BP 148/79; PULSE 72; RESP 18; TEMP 36.6; O2SAT 98
== END 2022-10-28 10:21 | disposition home or self-care (01) ==
PROVIDERS: Emergency Provider Nurse Practitioner Family; PCP Nurse Practitioner Family
DX: M54.50 Low back pain, unspecified (principal)
CPT/HCPCS: 81001; 99212; 99214; G0463

== ENCOUNTER → 2022-12-07 15:00 | Outpatient (CLI) | payer OTHER, MEDICAID, SELFPAY ==
[2022-12-07 15:50] LABS: Potassium 4.1 mmoL/L (3.5-5.1)
== END ==
PROVIDERS: PCP Nurse Practitioner Family; Visit Provider Physician Assistant Medical
DX: M65.332 Trigger finger, left middle finger (principal)
CPT/HCPCS: 36415; 84132

== ENCOUNTER → 2024-11-20 06:00 | Outpatient (CLI) | payer OTHER, SELFPAY ==
--- OUTSIDE RECORDS SUMMARY | 2023-03-10 11:29 | XMS_ITS | Encounter Summary ---
Author Organization [facility] Address [address] [place] [address] Care Team Providers Care Wrapper Caser Name Role Phone Edgardo Lopez MD Primary Care Provider [phone] Reason for Visit * Diagnostic Imaging (Routine) - Closed Specialty Diagnoses / Procedures Referred By Marge t Referred To Contact Radiology Diagnoses Borderline abnormal TFTs Procedures US Thyroid Lavelle Chao MD [address] [place] [address] Phone: tel: fax: Referral ID Status Reason Start Date Expiration Date Visits Re quested Visits Authorized [id number] Closed 03/10/2023 03/09/2024 1 1 Encounter Details Date Type Department Care Team (Late st Contact Info) Description 03/10/2023 10:29 AM EST Hospital Encounter [facility] [address] [place] [id number] Social History Tobacco Use Types Packs/Day Years Used Date Smoking Tobacco: Never Alcohol Use Standard Drinks/Week Comments Never 0 (1 standard drink = 0.6 oz pur e alcohol) Abuse Screen Answer Date Recorded Unsafe at Home or Work/School Not on file Feels Threatened by Someone? Not on file Does Anyone Keep You from Co ntacting Others or Doint Things Outside the Home? Not on file 12/16/2022 Physical Sign of Abuse Present Not on file 1 Housing Stability Answer Date Recorded Current Living Arrangements Not on file 12/04 Potentially Unsafe Housing Conditions Not on hayde e 12/16/2022 Family and Community Support Answer David e Recorded Help with Day-to-Day Activities Not on file 12/16/2022 Lonely or Isolated Not on file 12/16/2022 Employment Answer Date Recorded Do you want help finding or keeping work or a demar b? Not on file 12/16/2022 Disabilities Answer Date Recorded Concentrating, Remembering, or Making Decisions Difficulty Not on file 12/16/2022 Doing Errands Independently Difficulty Not on fi le 12/16/2022 Education Answer Date Recorded Help with school or training? Not on file Preferred Language Not on file 12/16/2022 Comments Unknown Sex and Gender Information Value Date Recorded Sex Assigned at Not on file Legal Sex Female 8:18 AM EDT Gender Identity Not on file Sexual Orientation Not on file documented as of this encounter Plan of Treatment Not on file documented as of this encounter Procedures Procedure Name Priority Date/Time Associated Diagnosis Comments US THYROID Routine 03/10/2023 10:29 AM EST Borderline abnormal TFTs documented in this encounter Results * US Thyroid (03/10/2023 10:29 AM EST) Narrative SYSTEMGENERATED, DOCUMENTATION - 03/10/2023 10:29 AM EST Please see performing physician's note for result. us Lavelle Juan Chao MD IMG US ORDERABLES Nati l Result documented in this encounter Visit Diagnoses Not on filedocumented in this encounter Care Teams Wrapper Caser Relationship Specialty Start Date End Date Edgardo Lopez MD [address] [facility] [address] ATTN: [place] [address] PCP - General Emergency Medicine 03/10/23 documented as of this encounter
--- OUTSIDE RECORDS SUMMARY | 2024-11-22 06:02 | XMS_ITS | Encounter Summary ---
Author Organization Healthcare Address [address] [place] [address] Care Team Providers Care Mexican Food Cook Name Role Phone Pcp, No Primary Care Provider Unavailabl e Encounter Details Date Type Department Care Team (Late st Contact Info) Description 12/12/2022 Orders Only [facility] [address] [place] [address] Chad Carrera MD [address] [place] [address] Social History Tobacco Use Types Packs/Day Years Used Date Smoking Tobacco: Never Smokeless Tobacco: Never PHQ-2 Answer Date Recorded Patient Health Questionnaire-2 Score 0 11/30/2022 PHQ-2A Answer Date Recorded Patient Health Questionnaire-2 Score 0 11/30/2022 Comments Unknown Sex and Gender Information Value Date Recorded Sex Assigned at Not on file Legal Sex Female 10:08 AM EDT Gender Identity Not on file Sexual Orientation Not on file documented as of this encounter Plan of Treatment Not on file documented as of this encounter Visit Diagnoses Not on filedocumented in this encounter Additional Health Concerns Assessment Noted Time A fall risk assessment has been complete d for the patient 11/30/2022 12:41 PM EDT documented as of this encounter Care Teams Mexican Food Cook Relationship Specialty Start Date End Date Pcp, No [address] [place] [address] PCP - General Family Medicine 11/04/22 documented as of this encounter
--- OUTSIDE RECORDS SUMMARY | 2024-11-22 06:02 | XMS_ITS | Clinical Summary ---
Author Organization [facility] Address [address] [place] [address] Care Team Providers Care Cad Librarian Name Role Phone Edgardo Lopez MD Primary Care Provider [phone] Allergies No known active allergies Medications methylPREDNISol one sodium succinate 1,000 mg in sodium chloride 0.9 % 250 mL IVPB Infuse 1,000 mg into a venous catheter 1 (One) Time. 3 Active atorvastatin (LIPITOR) 40 MG tablet Take 1 tablet by mouth Daily. 3 Active carvedilol (COREG) 12.5 MG tablet Take 0.5 tablets by mouth Every 12 (Twelve) Hours. 3 Active cyclobenzaprine (FLEXERIL) 10 MG tablet 1 tablet. 3 Active escitalopram (LEXAPRO) 20 MG tablet Take 1 tablet by mouth Daily. Active losartan (COZAAR) 100 MG tablet Take 1 tablet by mouth Daily. Active metFORMIN (GLUCOPHAGE) 500 MG tablet Take 1 tablet by mouth Daily With Breakfast. Active QUEtiapine (SEROquel) 25 MG tablet Take 1 tablet by mouth Daily. Active Ozempic, 1 MG/DOSE, 4 MG/3ML solution pen-injector Inject 4 mL under the skin into the appropriate area as directed 1 (One) Time Per Week. Active vitamin D (ERGOCALCIFEROL ) 1.25 MG (39475 UT) capsule capsule Take 1 capsule by mouth once a week 12 capsule 4 Active Active Problems Problem Noted Date Diagnosed Date Secondary hyperparathyroidism, non-renal 024 Assessment & Plan (03/10/2023 3:32 PM EST): Normal calcium, high pth. Usually this is due to vit d deficiency . <10 % of patients with primary hyperparthyroidism have normal calcium . Will check vit D Borderline abnormal TFTs 03/10/2023 Overview (03/10/2023): Low tsh. Normal ft4 Assessment & Plan (03/10/2023 3:31 PM EST): These labs are suggestive of mild hyperthyroidism. Likely due to a hot nodule. These preferentially make t3 Procedure: thyroid ultrasound Indication: palpable goiter Results- the entire thyroid is enlarged There is a 2+ cm hyperechoic nodule inferior and posterior on the left This goes along with a hot thyroid nodule. The plan is to check labs as below Vitamin D deficiency 03/10/2023 Family History Medical History Relation Name Comments Diabetes Father Hypertension Father Diabetes Mother Hypertension Mother Thyroid disease Mother Relation Name Status Comments Father Mother Social History Tobacco Use Types Packs/Day Years [...] on file Sexual Orientation Not on file Last Filed Vital Signs Vital Sign Reading Time Taken Comments Blood Pressure 124/64 03/10/2023 10:04 AM EST Pulse 82 03/10/2023 10:04 AM EST Temperature - - Respiratory Rate - - Oxygen Saturation 95% 03/10/2023 10:04 AM EST Inhaled Oxygen Concentration - - Weight 133 kg (293 lb) 03/10/2023 10:04 AM EST Height 170.2 cm (5' 7 ) 03/10/2023 10:04 AM EST Body Mass Index 45.89 03/10/2023 10:04 AM EST Plan of Treatment Health Maintenance Due Date Last Done Comments Annual Gynecologic Pelvic an d Breast Exam 1970 DIABETIC EYE EXAM 11/21/1979 DIABETIC FOOT EXAM 11/21/1979 URINE MICROALBUMIN-CREATININ E RATIO (uACR) 11/21/1979 Hepatitis B (1 of 3 - 19+ 3- dose series) 1988 PAP SMEAR 1990 COLOGUARD 2014 COLON CANCER SCREENING 5 YEA R SIGMOIDOSCOPY 2014 COLONOSCOPY 2014 [address] CANCER SCREENING 2014 CT COLONOGRAPHY 2014 FECAL OCCULT BLOOD TEST 2014 FIT Testing (1 year) 2014 ZOSTER VACCINE (2 of 2) 10/06/2021 08/11/2021 ANNUAL PHYSICAL 03/10/2023 HEMOGLOBIN A1C 03/10/2023 08/11/2021, 11/05, 07/30/2020, Additional history exists HEPATITIS C SCREENING 03/10/2023 MAMMOGRAM 06/19/2023 06/18/2021, 05/05, 06/12/2018, Additional history exists TDAP/TD VACCINES (2 - Td or Tdap) 03/31/2024 015 COVID-19 Vaccine (4 - 2024- 6 season) 2024 02/11/2021, 05/29/2020, 05/03/2020 INFLUENZA VACCINE 12/04/2024 11/23/2020, , 04/26/2017, Additional history exists Pneumococcal Vaccine 50+ Completed 08/11/2021 Insurance R Care Teams Cad Librarian Relationship Specialty Start Date End Date Edgardo Lopez MD [address] [facility] [address] ATTN: [place] [address] PCP - General Emergency Medicine 03/10/23
--- OUTSIDE RECORDS SUMMARY | 2024-11-22 06:02 | XMS_ITS | Clinical Summary ---
Author Organization Healthcare Address [address] [place] [address] Care Team Providers Care Utilization Manager Name Role Phone Pcp, No Primary Care Provider Unavailabl e Allergies No known active allergies Medications potassium chloride CR (Klor-Con M20) 20 MEQ ER tablet Take 1 tablet (20 mEq) by mouth 1 (one) time each day. 10/20/2022 Active amLODIPine (Norvasc) 10 MG tablet Take 1 tablet (10 mg) by mouth 1 (one) time each day. 11/08/2022 Active carvedilol (Coreg) 12.5 MG tablet Take 1 tablet (12.5 mg) by mouth. 01/26/2022 Active losartan (Cozaar) 100 MG tablet Take 1 tablet (100 mg) by mouth 1 (one) time each day. 11/08/2022 Active escitalopram (Lexapro) 20 MG tablet Take 1 tablet (20 mg) by mouth 1 (one) time each day. 11/08/2022 Active QUEtiapine (SEROquel) 25 MG tablet Take 1 tablet (25 mg) by mouth 1 (one) time each day. 11/08/2022 Active atorvastatin (Lipitor) 40 MG tablet Take 1 tablet (40 mg) by mouth 1 (one) time each day. 09/28/2022 Active spironolactone (Aldactone) 25 MG tablet 10/20/2022 Active metFORMIN (Glucophage) 500 MG tablet Take 1 tablet (500 mg) by mouth 2 (two) times a day with meals. Active Active Problems Problem Noted Date Diagnosed Date Class III obesity with body mass index (BMI) of 40.0 or higher 01/06/2023 Social History Tobacco Use Types Packs/Day Years Used Date Smoking Tobacco: Never Smokeless Tobacco: Never Alcohol Use Standard Drinks/Week Comments Yes 0 (1 standard drink = 0.6 oz pur e alcohol) occ PHQ-2 Answer Date Recorded Patient Health Questionnaire-2 Score 0 11/30/2022 PHQ-2A Answer Date Recorded Patient Health Questionnaire-2 Score 0 11/30/2022 Comments No Sex and Gender Information Value Date Recorded Sex Assigned at Not on file Legal Sex Female 10:08 AM EDT Gender Identity Not on file Sexual Orientation Not on file Last Filed Vital Signs Vital Sign Reading Time Taken Comments Blood Pressure 171/94 02/07/2023 3:10 PM EST Pulse 71 02/07/2023 3:10 PM EST Temperature 36.9 C (98.5 F) 11/30/2022 12:44 PM EDT Respiratory Rate - - Oxygen Saturation 97% 02/07/2023 3:10 PM EST Inhaled Oxygen Concentration - - Weight 127 kg (280 lb) 02/07/2023 3:10 PM EST Height 170.2 cm (5' 7 ) 02/07/2023 3:10 PM EST Body Mass Index 43.85 02/07/2023 3:10 PM EST Plan of Treatment Health Maintenance Due Date Last Done Comments [facility]-HIV Screening 1969 [facility]-Hepatitis C Screening 1969 [facility]-Infant/Child/Adol SDOH Screenings 1969 [facility]- SDOH Screenings 11/21/1987 [facility]-Adult SDOH Screenings 11/21/1987 [facility]-Hepatitis B Vaccines (1 of 3 - 19+ 3-dose series) 1988 [facility]-Pap Smear 1990 [facility]-Cervical Cancer Screening 11/21/1999 [facility]-HPV/Cotest 11/21/1999 CT Colonography 2014 Colonoscopy 2014 FIT-DNA 2014 FIT 2014 FOBT 2014 Sigmoidoscopy 2014 [facility]-Colorectal Cancer Screening 2014 [facility]-Pneumococcal Vaccine: 50+ Years (1 of 1 - PCV) 11/21/2019 [facility]-Zoster Vaccines (1 of 2) 11/21/2019 [facility]-Breast Cancer Screening 06/19/2023 0407/2021, 05/27/2020, 06/12/2018, Additional history exists [facility]-Depression Screening 12/01/2023 11/30/2022 [facility]-DTaP,Tdap,and Td Vaccines (2 - Td or Tdap) 03/31/2024 03/31/2014 [id number] Vaccine (4 - season) 2024 02/11/2021, 05/29/2020, 05/03/2020 [facility]-Influenza Vaccine (#1) 2024 11/21/2014, [facility]-Obesity Intervention Completed 02/07/2023, 12/05 HPV Vaccines Aged Out No longer eligi ble based on patient's age to complete this topic [facility]-HIB Vaccines Aged Out No longer e ligible based on patient's age to complete this topic [facility]-Hepatitis A Vaccines Aged Out No longer eligible based on patient's age to complete this topic [facility]-IPV Vaccines Aged Out No longer e ligible based on patient's age to complete this topic [facility]-Rotavirus Vaccines Aged Out No lo nger eligible based on patient's age to complete this topic Insurance [employer] [place] Care Teams Utilization Manager Relationship Specialty Start Date End Date Pcp, No [address] [place] [address] PCP - General Family Medicine 11/04/22
== END ==
PROVIDERS: PCP Nurse Practitioner Family; Visit Provider Nurse Practitioner Family
DX: G47.33 Obstructive sleep apnea (adult) (pediatric) (principal); G47.36 Sleep related hypoventilation in conditions classified elsewhere; R40.0 Somnolence
CPT/HCPCS: G0399